=== PATIENT | male | born 1990 | race Two or more races ===

== ENCOUNTER 2024-06-24 17:36 | Emergency (ER) | payer OTHER ==
[~2024-06-24] VITALS: Ht 167.6 cm; Wt 77.1 kg
[2024-06-24] MEDS ORDERED: KETOROLAC TROMETHAMINE 60 MG VIAL IM ONE ×2 (18:15→18:30)
[2024-06-24] MEDS ORDERED: KETO10TA2 PO (20:13)
[2024-06-24] MEDS ORDERED: NORFLEX100MG PO (20:13)
== END 2024-06-24 20:54 | disposition home or self-care (01) ==
LOC: EDBD 17:38 → ER 17:38
DX: M25.511 Pain in right shoulder (principal); S00.81XA Abrasion of other part of head, initial encounter; W22.8XXA Striking against or struck by other objects, initial encounter; Y93.89 Activity, other specified; Y92.89 Other specified places as the place of occurrence of the external cause